=== PATIENT | male | born 1945 | race Two or more races ===

== ENCOUNTER → 2017-01-30 | Day surgery (SDC) | payer MEDICARE, OTHER ==
[2017-01-30] VITALS (8 sets, daily range): BP systolic 116–141; BP diastolic 66–90
[~2017-01-30] VITALS: Ht 180.3 cm; Wt 83.9 kg
[~2017-01-30] MED LIST: ACETAMINOPHEN120 MG RECTAL; ALLOPURINOL100 M1 ORAL; DIAZEPAM2 MG ORAL; LIPITOR20 MG ORAL; LORAZEPAM1 MG ORAL; LR 1000ml 1,000 ML IVLG SCH; LR 1000ml ONE; Lidocaine 1% MPF 10mg/ml 5ml ONE; PLAVIX75 MG ORAL; Propofol 10mg/ml 20ml IV ONE
--- NOTE | 2017-01-30 10:11 | Short Stay Surgery H&P ---
History of Present Illness History of Present Illness Chief Complaint Screening colonoscopy with history of colon polyp. JUN Ann is a 71 year old male who was admitted on for screening colon for polyps/tumor with history of colon polyp. Patient History Allergies: Coded Allergies: No Known Allergies (Unverified , 01/29/17) PAST MEDICAL HISTORY: (1) Hyperlipidemia (2) Hyperuricemia (3) Hemorrhoids (4) Colon polyps Past Surgeries: Social History: Review of Systems Cardiovascular: Reports: no symptoms Respiratory: Reports: no symptoms Skeletal: Reports: no symptoms Gastrointestinal: Reports: no symptoms Genitourinary: Reports: no symptoms Neurologic: Reports: no symptoms Endocrine: Reports: no symptoms Physical Exam Vital Signs Last Vital Signs Date Time Temp Pulse Resp B/P Pulse Ox O2 Delivery O2 Flow Rate FiO2 01/30/17 09:35 97.5 57 20 99 Room Air Skin: normal HENT: normal Heart: normal Lungs: normal Abdomen: normal Extremities: normal Genitourinary: normal Plan Plan of Care Total colonoscopy. Preop Interventions None. Summary of Findings See the reports. Final Diagnosis: Attestation Are the patient's medical conditions optimized for surgery? Attestation Response: yes TIFFANY GUERRERO Jan 30, 2017 10:11
--- NOTE | 2017-01-30 10:12 | Pre-Procedure Note/Attestation ---
Pre-Procedure Note/Attestation Complete Prior to Procedure Planned Procedure: left Procedure Narrative: Endoscopic exam of the coloon for polyps/screening colon. Indications for Procedure Pre-Operative Diagnosis: R/O colon polyps. Attestation I attest that I discussed the nature of the procedure; its benefits; risks and complications; and alternatives (and the risks and benefits of such alternatives ), prior to the procedure, with the patient (or the patient's legal truck sales representative). I attest that, if there was a reasonable possibility of needing a blood transfusion, the patient (or the patient's legal truck sales representative) was given the [facility] standardized written summary, pursuant to the Florentin [place] Blood Safety Act ([place] Health and Safety Code # 1645, as amended). I attest that I re-evaluated the patient just prior to the surgery and that there has been no change in the patient's H&P, except as documented below: YOLANDA,SAID Jan 30, 2017 10:12
--- NOTE | 2017-01-30 10:28 | Anethesia Preoperative Eval ---
Anesthesia Pre-op PMH/ROS General ASA Score: ASA 2 Mallampati Score Class I : Soft palate, uvula, fauces, pillars visible Class II: Soft palate, uvula, fauces visible Class III: Soft palate, base of uvula visible Class IV: Only hard plate visible Mallampati Classification: Class II Surgeon: cleo Diagnosis: colon polyp Surgical Procedure: colon screen Anesthesia History: none Family History: no anesthesia problems Allergies: Coded Allergies: No Known Allergies (Unverified , 01/29/17) Medications: see eMAR Past Medical History Cardiovascular: Denies: CAD, HTN, [place], arrhythmia, other, valve dz Pulmonary: Denies: COPD, THEODORA, asthma, other Neurologic/Psychiatric: Reports: depression/anxiety Endocrine: Denies: DM, hypothyroidism, other, steroids HEENT: Denies: CHITIMACHA (L), CHITIMACHA (R), cataract (L), cataract (R), glaucoma, other Hematology/Immune: Denies: DVT, anemia, bleeding disorder, other Musculoskeletal/Integumentary: Denies: DDD, DJD, OA, RA, edema, other PMH Narrative: hx colon polyp Anesthesia Pre-op Phys. Exam Physician Exam Last Vital Signs Date Time Temp Pulse Resp B/P Pulse Ox O2 Delivery O2 Flow Rate FiO2 01/30/17 09:35 97.5 57 20 99 Room Air Constitutional: NAD Neurologic: CN 2-12 intact Cardiovascular: other - SB Respiratory: CTA Gastrointestinal: S/NT/ND Airway Exam Mallampati Classification 2 Mallampati Score: Class II MO: full ROM: full Dentures: no lower, no upper Anesthesia Pre-op A/P Studies Pre-op Studies: EKG - SB Risk Assessment & Plan Plan: mac Status Change Before Surgery: No Pre-Antibiotics Drug: none TARRILLION,JAN CHIEF MATE Jan 30, 2017 10:28
--- NOTE | 2017-01-30 10:44 | Endoscopy Procedure Note ---
Endoscopy Procedure Note Indication for Procedure: History of colon polyps Procedures Performed: colonoscopy - Colonic diverticulosis. Three diminutive/ hyperplastic polyps removed, distal transverse and splenic flexure with cold biopsy forceps and one at rectosigmoid junction with hot snare. Poor colon prep. Specimen: yes Pt Tolerated Procedure Well: Yes Estimated Blood Loss: none Anesthesiologist: Dr. Raza Anesthesia: moderate sedation Medication Given: see anesthesia record Implant(s) used?: No 50 yrs or older w/o bx or poly: Yes 10yrs. F/U not recommended: Yes If not recommended, why?: <3yrs. since last colonoscopy: No Med reason:<3 yrs.: System Reason:<3 yrs.: Last colonoscopy >= to 3yrs: Yes TIFFANY GUERRERO Jan 30, 2017 10:44
--- NOTE | 2017-01-30 10:45 | Discharge Instructions ---
Discharge Instructions Discharge Instructions Follow up with: Visit the doctor for reslts after one/two weeks. For Congestive Heart Failure Reminder Report to your physician any weight gain of 5 pounds or more in one week. TIFFANY GUERRERO Jan 30, 2017 10:45
--- NOTE | 2017-01-30 10:49 | Immediate Post-Op Evaluation ---
Immediate Post-Op Evalulation Immediate Post-Op Evalulation Procedure: Colonoscopy Date of Evaluation: Jan 30, 2017 Time of Evaluation: 10:49 IV Fluids: 300 Blood Pressure Systolic: 116 Blood Pressure Diastolic: 62 Pulse Rate: 64 Respiratory Rate: 19 O2 Sat by Pulse Oximetry: 100 Nausea: No Vomiting: No Complications none Patient Status: awake, reacts, patent Hydration Status: adequate Drug: none VIKRIJAN CHISHOLM CRNA Jan 30, 2017 10:49
--- NOTE | 2017-01-30 11:16 | 48 Hour Post Anesthesia Eval ---
Post Anesthesia Evaluation Procedure: Colonoscopy Date of Evaluation: Jan 30, 2017 Time of Evaluation: 11:16 Blood Pressure Systolic: 115 0: 63 Pulse Rate: 55 O2 Sat by Pulse Oximetry: 99 Airway: patent Nausea: No Vomiting: No Hydration Status: adequate Mental Status/LOC: patient returned to baseline Post-Anesthesia Complications: none Follow-up care needed: N/A JAN GAMBINO CRNA Jan 30, 2017 11:16
--- NOTE | 2017-01-30 20:28 | Operative Note - Dictated ---
DATE OF OPERATION: 01/30/2017 PROCEDURE: Total colonoscopy with polypectomy. PREOPERATIVE DIAGNOSIS: History of colon polyps. POSTOPERATIVE DIAGNOSES: 1. Diverticulosis of the colon. 2. Three diminutive polyps were removed from the colon, one at the level of the distal transverse, and the other one at the level of the splenic flexure, both removed with cold biopsy forceps and a small diminutive polyps located over rectosigmoid, removed with a snare cautery forceps. 3. Poor colonic preparation. MEDICATIONS USED: Per Dr. Raza, anesthesiologist. INSTRUMENT: GIF Olympus videocolonoscope. DESCRIPTION OF PROCEDURE: The patient after arriving at the endoscopy unit, was told about risks and benefits of the procedure, which he accepted and signed the informed consent. At this time, he was put on the left lateral decubitus position. After adequate IV sedation, the scope was gently passed through the anal area. The scope was performed, which revealed very minimal internal hemorrhoids of no great significance. At this time, the rest of the rectum was examined, which looked normal, however, upon reaching to the rectosigmoid area at the level of 25 to 26 cm from the anus, there was a small raised tissue consistent with diminutive polyps. Surface looked quite normal and not ulcerated. It was sort of flat as well. At this point, the lesion was grabbed and hold with snare cautery forceps and totally removed and sent to the pathology lab. At this point, the scope was passed through rather redundant left colon and gradually advanced towards the splenic flexure whereby another 1 to 2 mm diminutive type lesion was seen along with another one at the distal transverse colon, which both looked benign consistent with hyperplastic polyp. Both were removed with cold biopsy forceps, however, without any evidence of bleeding. Subsequently, the scope was passed through the rest of the colon, which revealed evidence of diverticular lesions of minimal degree, mostly significant in the right ascending colon. The colon cleanup was poor and as such missing other diminutive polypoid lesion could not be ruled out, however, there was no any major polyp of a size to be seen at this point to be removed except those that I mentioned earlier. After reaching to the base of the cecum finding of no other abnormalities, the scope was gradually pulled out within six minutes and the patient tolerated the procedure well. Said Matheus Saul DR: RAHLE JOB#: [id number] CC: MELISSA
== END | disposition home or self-care (01) ==
LOC: GAS 08:37
DX: Z12.11 Encounter for screening for malignant neoplasm of colon (principal); D12.3 Benign neoplasm of transverse colon; D12.7 Benign neoplasm of rectosigmoid junction; K63.5 Polyp of colon; K57.30 Diverticulosis of large intestine without perforation or abscess without bleeding; K64.8 Other hemorrhoids; E79.0 Hyperuricemia without signs of inflammatory arthritis and tophaceous disease; E78.5 Hyperlipidemia, unspecified; Z86.010 Personal history of colon polyps; F32.9 Major depressive disorder, single episode, unspecified; F41.9 Anxiety disorder, unspecified
CPT/HCPCS: 94003; 94150

== ENCOUNTER 2020-09-18 07:30 | Day surgery (SDC) | payer MEDICARE, OTHER ==
[2020-09-18] VITALS (8 sets, daily range): BP systolic 122–154; BP diastolic 74–88
[~2020-09-18] VITALS: Ht 182.9 cm; Wt 83.5 kg
--- NOTE | 2020-09-18 07:15 | Short Stay Surgery H&P ---
History of Present Illness History of Present Illness Chief Complaint screening colonoscopy with hidtory of colon polyp. Abdominal pains. HPI Scooter Ann is a 75 year old male who was admitted on for Gerds, Colon Polyps Patient History Allergies: Coded Allergies: No Known Allergies (Unverified , 09/14/20) PAST MEDICAL HISTORY: (1) Hyperlipidemia (2) Gout Medication History Scheduled Allopurinol* (Allopurinol*), 100 MG ORAL BEDTIME, (Reported) Apixaban (Eliquis*), 10 MG ORAL BID, (Reported) Atorvastatin Calcium* (Lipitor*), 10 MG ORAL BEDTIME, (Reported) Lorazepam* (Lorazepam*), 1 MG ORAL BEDTIME, (Reported) Discontinued Medications Clopidogrel Bisulfate* (Plavix*), 75 MG ORAL DAILY, (Reported) Discontinued Reason: Pt stopped taking med Review of Systems Cardiovascular: Reports: no symptoms Respiratory: Reports: no symptoms Skeletal: Reports: no symptoms Gastrointestinal: Reports: gastro esophageal reflux disease Genitourinary: Reports: no symptoms Neurologic: Reports: no symptoms Endocrine: Reports: no symptoms Hematologic: Reports: no symptoms Physical Exam Skin: normal HENT: normal Heart: normal Lungs: normal Abdomen: normal Extremities: normal Genitourinary: normal Plan Plan of Care Upper and lower GI. endoscopies with possible biopsy. Preop Interventions None. Summary of Findings See the reports. Attestation Are the patient's medical conditions optimized for surgery? Attestation Response: yes Paco Saul MD Sep 18, 2020 07:15
--- NOTE | 2020-09-18 07:16 | Pre-Procedure Note/Attestation ---
Pre-Procedure Note/Attestation Complete Prior to Procedure Planned Procedure: left Procedure Narrative: Examination of the upper and the lower GI tract via endoscopy. Indications for Procedure Pre-Operative Diagnosis: R/o colon polyps/Gastritis esophagitis. Attestation I attest that I discussed the nature of the procedure; its benefits; risks and complications; and alternatives (and the risks and benefits of such alternatives), prior to the procedure, with the patient (or the patient's legal branch customer service representative). I attest that, if there was a reasonable possibility of needing a blood transfusion, the patient (or the patient's legal branch customer service representative) was given the [facility] standardized written summary, pursuant to the Florentin [place] Blood Safety Act ([place] Health and Safety Code # 1645, as amended). I attest that I re-evaluated the patient just prior to the surgery and that there has been no change in the patient's H&P, except as documented below: Paco Saul MD Sep 18, 2020 07:16
--- NOTE | 2020-09-18 07:17 | Discharge Instructions ---
Discharge Instructions Discharge Instructions Follow up with: Follow up with the doctor with office appointment For Congestive Heart Failure Reminder Report to your physician any weight gain of 5 pounds or more in one week. Paoc Saul MD Sep 18, 2020 07:17
[~2020-09-18 07:30] MED LIST changes: +ELIQUIS5 MG ORAL; -LR 1000ml ONE; -Lidocaine 1% MPF 10mg/ml 5ml ONE; -Propofol 10mg/ml 20ml IV ONE
--- NOTE | 2020-09-18 07:54 | Anethesia Preoperative Eval ---
Anesthesia Pre-op PMH/ROS General Date of Evaluation: Sep 18, 2020 Time of Evaluation: 07:53 Anesthesiologist: orlin ASA Score: ASA 2 Mallampati Score Class I : Soft palate, uvula, fauces, pillars visible Class II: Soft palate, uvula, fauces visible Class III: Soft palate, base of uvula visible Class IV: Only hard plate visible Mallampati Classification: Class II Surgeon: Kg Diagnosis: GERDS Surgical Procedure: EGD?Colon Anesthesia History: none Family History: no anesthesia problems Allergies: Coded Allergies: No Known Allergies (Unverified , 09/14/20) Medications: see eMAR Patient NPO?: Yes NPO Date: Sep 18, 2020 NPO Time: 00:01 Past Medical History Cardiovascular: Reports: other - HLP; Denies: HTN, CAD, [place], valve dz, arrhythmia Pulmonary: Denies: asthma, COPD, THEODORA, other Gastrointestinal/Genitourinary: Reports: GERD; Denies: CRI, ESRD, other Neurologic/Psychiatric: Reports: depression/anxiety; Denies: dementia, CVA, TIA, other Endocrine: Denies: DM, hypothyroidism, steroids, other HEENT: Denies: cataract (L), cataract (R), glaucoma, MORONGO (L), MORONGO (R), other Hematology/Immune: Denies: anemia, DVT, bleeding disorder, other Musculoskeletal/Integumentary: Denies: OA, RA, DJD, DDD, edema, other Other: other - GOUT Anesthesia Pre-op Phys. Exam Physician Exam Constitutional: NAD Neurologic: CN 2-12 intact Cardiovascular: RRR Respiratory: CTA Gastrointestinal: S/NT/ND Airway Exam Mallampati Classification 2 Mallampati Score: Class II MO: full ROM: full Dentures: no upper, no lower Anesthesia Pre-op A/P Studies Pre-op Studies: EKG - sr Risk Assessment & Plan Assessment: covid neg Plan: mac Status Change Before Surgery: No Pre-Antibiotics Drug: none Temi Toussaint CRNA Sep 18, 2020 07:54
[2020-09-18] MEDS ORDERED: LR 1000ml ONE (08:00)
--- NOTE | 2020-09-18 08:37 | Endoscopy Procedure Note ---
Endoscopy Procedure Note General Indication for Procedure: Abdominal pains/GERDs/history of colon polyp Procedures Performed: EGD - Mild gastritis, biopsy obtained from antral area; otherwise normal UGI endoscopy., colonoscopy - Poor colon clean up. Diverticulosis. Melanosis coli. 4 mm flat polypoid lesion in mid decdencing colon removed by cold biopsy, looked benign. Specimen: yes Pt Tolerated Procedure Well: Yes Estimated Blood Loss: none Anesthesia Anesthesiologist: Ms. Temi Raza, college sports coach. Anesthesia: moderate sedation Medications Medication Given: see anesthesia record Inserted Devices Implant(s) used?: No Quality Quality of Bowel Preparation: Poor Did scope reach the cecum?: Yes Was there any complications?: No GI Core Measures 50 yrs or older w/o bx or poly: Yes 10yrs. F/U recommended: Yes If not recommended, why?: 18 years or older w/prev. colo: Yes Last colonoscopy >= to 3yrs: Yes Paco Saul MD Sep 18, 2020 08:37
--- NOTE | 2020-09-18 08:42 | Immediate Post-Op Evaluation ---
Immediate Post-Op Evalulation Immediate Post-Op Evalulation Procedure: EGD/Colonoscopy Date of Evaluation: Sep 18, 2020 Time of Evaluation: 08:42 IV Fluids: 500 Blood Pressure Systolic: 122 Blood Pressure Diastolic: 70 Pulse Rate: 54 Respiratory Rate: 14 O2 Sat by Pulse Oximetry: 99 Temperature (Fahrenheit): 97.4 Nausea: No Vomiting: No Complications none Patient Status: awake, reacts, patent Hydration Status: adequate Drug: none MarlynriTemi bell CRNA Sep 18, 2020 08:42
--- NOTE | 2020-09-18 09:14 | Operative Note - Dictated ---
DATE OF OPERATION: 09/18/2020 SURGEON: Paco Saul MD. PROCEDURE: Esophagogastroduodenoscopy with biopsy. PREOPERATIVE DIAGNOSIS: History of gastroesophageal acid reflux, abdominal pain. POSTOPERATIVE DIAGNOSIS: Mild generalized gastritis, otherwise normal upper GI endoscopy. Biopsy was taken from antral area. MEDICATION USED: Per Temi Toussaint, program management analyst. INSTRUMENT: GIF Olympus upper GI video endoscope. DESCRIPTION OF PROCEDURE: The patient after arriving in the endoscopy unit, was told about risks and benefits of the procedure that he understood and signed the consent form. At this time, he was put in the left lateral decubitus position and after adequate IV sedation, scope was gently passed through the cricopharyngeal area was lodged into the upper esophagus and gradually advanced towards gastroesophageal junction. The entire length of esophagus looked normal without any pathology. GE junction also looked normal and there was no any evidence of Tian's or hiatal hernia. At this time, the scope was advanced into the stomach. Gastric cavity was distended with insufflation of air and gradually the areas of the fundus and the body and the antrum were examined, which revealed evidence of mild erythema consistent with mild gastritis. There were no any ulcers, tumors, polyps, etc. One random biopsy from the antral area was obtained and subsequently scope was passed through the pylorus. First and second portion of duodenum were found also to be completely normal. Finally, scope was pulled out and retroflexion maneuver was applied and the area of the gastroesophageal junction was examined in a retrograde fashion, which revealed no other new findings. At this time, the procedure was terminated and the patient tolerated the procedure well. Paco Saul M.D. DR: NEVIN JOB#: [id number] CC:
--- NOTE | 2020-09-18 09:15 | Operative Note - Dictated ---
DATE OF OPERATION: 09/18/2020 SURGEON: Paco Saul MD. PROCEDURE: Total colonoscopy with polypectomy. PREOPERATIVE DIAGNOSIS: History of colon polyps, abdominal pain. POSTOPERATIVE DIAGNOSES: 1. Diverticulosis of the colon. 2. Melanosis coli. 3. A 4 mm flat benign-looking polypoid lesion in mid descending colon removed by cold biopsy forceps. INSTRUMENT USED: GIF Olympus video colonoscope. ANESTHESIA: Per Temi Toussaint maintenance planning clerk. DESCRIPTION OF PROCEDURE: The patient after arriving in the endoscopy unit, was told about risks and benefits of the procedure that he accepted and signed the consent form. At this time, the scope was advanced through the anal area, which did not reveal any major hemorrhoids and gradually introduced into the rectosigmoid area. The colon looked change of mucosal finding consistent with melanosis coli, which was generalized, but mostly on the left side. However, there were numerous diverticular lesions in the left colon seen consistent with diverticulosis. At this time, the scope was advanced through the descending colon. In the area of the mid descending colon, there was a 4 mm flat polypoid lesion, which looked benign, was noted and it was grabbed with cold biopsy forceps and totally removed, and the specimen was sent to the pathology laboratory. There was no bleeding at the site of polypectomy. Subsequently, the scope was passed through the splenic flexure from there into transverse colon and hepatic flexure, and guided into the right colon all the way to the ileocecal area and the base of the cecum was also visualized. There was no any abnormalities such as tumors or polyps noted. At this point, no strictures. No bleeding. Colon cleanup was poor and multiple washings had to be done. However, no gross major polypoid lesion was noted. Approximately within 6 minutes, the scope was gradually pulled out and the procedure was terminated. The patient tolerated the procedure well and left the endoscopy room in good condition. Paco Saul M.D. DR: NEVIN JOB#: [id number] CC:
--- NOTE | 2020-09-18 09:26 | 48 Hour Post Anesthesia Eval ---
Post Anesthesia Evaluation Procedure: EGD/Colonoscopy Date of Evaluation: Sep 18, 2020 Time of Evaluation: 09:25 Blood Pressure Systolic: 135 0: 85 Pulse Rate: 56 Respiratory Rate: 14 O2 Sat by Pulse Oximetry: 98 Airway: patent Nausea: No Vomiting: No Hydration Status: adequate Cardiopulmonary Status: stable Mental Status/LOC: patient returned to baseline Follow-up Care/Observations: na Post-Anesthesia Complications: none Follow-up care needed: N/A Temi Toussaint CRNA Sep 18, 2020 09:25
== END 2020-09-18 09:15 | disposition home or self-care (01) ==
LOC: GAS 07:30
DX: K57.90 Diverticulosis of intestine, part unspecified, without perforation or abscess without bleeding (principal); K63.5 Polyp of colon; E78.5 Hyperlipidemia, unspecified; K21.9 Gastro-esophageal reflux disease without esophagitis; Z79.02 Long term (current) use of antithrombotics/antiplatelets; K63.89 Other specified diseases of intestine; F32.9 Major depressive disorder, single episode, unspecified; F41.9 Anxiety disorder, unspecified; K29.50 Unspecified chronic gastritis without bleeding; D12.4 Benign neoplasm of descending colon
CPT/HCPCS: 43239; 45380; 94003; J2704; J7120; U0002; 94150